=== PATIENT | female | born 1980 | race Caucasian/White ===

== ENCOUNTER → 2022-05-30 11:57 | Outpatient (CLI) | payer OTHER, SELFPAY ==
--- NOTE | 2022-05-30 12:09 | XR_ITS ---
FINAL REPORT CLINICAL HISTORY: left foot crush injury FINDINGS: LEFT FOOT Three views of the left foot demonstrate no acute fracture or dislocation. The joint spaces are preserved. The soft tissues are unremarkable. IMPRESSION: No acute bony abnormality. Reviewed, Interpreted and Dictated by Andrew Gonzalez III, MD Transcribed by Karina Thomas Authenticated and [facility]
== END ==
PROVIDERS: PCP Nurse Practitioner; Visit Provider Podiatrist
DX: M79.672 Pain in left foot (principal)
CPT/HCPCS: 73630

== ENCOUNTER → 2022-06-20 10:10 | Outpatient (CLI) | payer OTHER, SELFPAY ==
--- NOTE | 2022-06-20 10:18 | XR_ITS ---
FINAL REPORT CLINICAL HISTORY: foot pain COMPARISON: May 30, 2022 FINDINGS: Three weight-bearing views show no evidence of acute displaced fracture or dislocation of the visualized bony architecture. The joint spaces appear normal. IMPRESSION: Unremarkable exam. Reviewed, Interpreted and Dictated by Kim Landa MD Transcribed by Tj Hernadez Authenticated and . [facility]
== END ==
PROVIDERS: PCP Nurse Practitioner; Visit Provider Podiatrist
DX: S90.812A Abrasion, left foot, initial encounter (principal); S92.342A Displaced fracture of fourth metatarsal bone, left foot, initial encounter for closed fracture; S97.82XA Crushing injury of left foot, initial encounter
CPT/HCPCS: 73630

== ENCOUNTER → 2022-06-30 09:54 | Outpatient (CLI) | payer OTHER, SELFPAY ==
--- NOTE | 2022-06-30 09:54 | MR_ITS ---
FINAL REPORT CLINICAL HISTORY: foot pain/injury table leg fell on foot on may 10 swelling FINDINGS: Multiplanar MR imaging of the left foot was performed without contrast. Lateral subcutaneous edema is noted. The bony structures are intact without evidence of fracture, bone bruise or marrow edema. The flexor and extensor tendons are intact. No ligamentous injury is identified. The musculature is intact. The plantar aponeurosis is intact. No soft tissue mass or cyst is identified. IMPRESSION: No acute bony abnormality identified. Lateral subcutaneous edema. Reviewed, Interpreted and Dictated by Andrew Gonzalez III, MD Transcribed by Karis Negron Authenticated and [facility]
--- NOTE | 2022-06-30 09:54 | MR_ITS ---
FINAL REPORT CLINICAL HISTORY: ankle pain/injury left ankle pain table leg fell on it swelling FINDINGS: Multiplanar MR imaging of the left ankle was performed without contrast. Motion artifact is identified on many of the images. The bony structures are intact without evidence of fracture, bone bruise or marrow edema. No osteochondral lesion is identified. The ligaments are intact without evidence of injury. The flexor and extensor tendons are intact. The posterior plantar aponeurosis is intact. No significant joint effusion is seen. The musculature is intact. There is lateral subcutaneous edema. IMPRESSION: No focal abnormality identified. Lateral subcutaneous edema. Reviewed, Interpreted and Dictated by Andrew Gonzalez III, MD Transcribed by Madeleine Alexandra Authenticated and [facility]
== END ==
PROVIDERS: PCP Nurse Practitioner; Visit Provider Podiatrist
DX: M25.572 Pain in left ankle and joints of left foot (principal); R93.7 Abnormal findings on diagnostic imaging of other parts of musculoskeletal system; S90.812D Abrasion, left foot, subsequent encounter; S92.345G Nondisplaced fracture of fourth metatarsal bone, left foot, subsequent encounter for fracture with delayed healing; S93.492S Sprain of other ligament of left ankle, sequela; S97.82XD Crushing injury of left foot, subsequent encounter; T14.8XXA Other injury of unspecified body region, initial encounter
CPT/HCPCS: 73718; 73721